=== PATIENT | male | born 1965 | race African-American/Black ===

== ENCOUNTER → 2018-03-18 | Outpatient (CLI) | payer OTHER ==
--- NOTE | 2018-03-18 16:23 | REP ---
CT IAC'S WITHOUT CONTRAST: HISTORY: Right otorrhea. The internal auditory canals, cochlea, vestibules and semicircular canals are normal in appearance. There is no carotid canal or jugular bulb dehiscence. The ossicles are normal in configuration and position. The scutum and tegmen are intact. The middle ear cavities and mastoid air cells are clear. The visualized sinuses are clear. The nasopharynx is normal in appearance. IMPRESSION:Normal CT IAC's. Electronically Signed by Yogi Pizarro MD 03/18/2018 04:24 P
== END ==
LOC: M RAD 15:39
PROVIDERS: ATTEND Otolaryngology
DX: H92.11 Otorrhea, right ear (principal)